=== PATIENT | female | born 1985 | race Caucasian/White ===

== ENCOUNTER 2019-02-03 07:03 | Day surgery (SDC) | payer OTHER ==
[2019-02-03] VITALS (31 sets, daily range): BP systolic 80–117; BP diastolic 48–68; PULSE 58–88; RESP 9–25; Ht 154.9 cm; Wt 68.0 kg
[~2019-02-03] VITALS: Ht 154.9 cm; Wt 68.0 kg
[2019-02-03] MEDS ORDERED: FENTAnyl 50 MCG/ML VIAL ONE (09:50)
[2019-02-03] MEDS ORDERED: CEFAZOLIN 1 GM INJ ONE (09:50)
[2019-02-03] MEDS ORDERED: ONDANSETRON 4 MG INJ ONE (09:50)
[2019-02-03] MEDS ORDERED: MIDAZOLAM 1 MG/ML 2 ML INJ ONE (09:50)
[2019-02-03] MEDS ORDERED: PROPOFOL 20 ML ONE (09:50)
[2019-02-03] MEDS ORDERED: ROCURONIUM 50 MG INJ ONE (09:50)
[2019-02-03] MEDS ORDERED: GLYCOPYRROLATE 0.4 MG INJ ONE (09:50)
[2019-02-03] MEDS ORDERED: NEOSTIGMINE 3 MG/3 ML SYRINGE ONE (09:50)
[2019-02-03] MEDS ORDERED: DEXAMETHASONE 4 MG/ML 5 ML INJ ONE (09:51)
[2019-02-03] MEDS ORDERED: CEFAZOLIN 2 GM/50 ML (PMX) 50 ML IVPB SCH (10:00)
[2019-02-03] MEDS ORDERED: SOD CHLORIDE 0.9% 1,000 ML IV SCH (10:00)
--- NOTE | 2019-02-03 10:23 | PREAC ---
Date/Time of Note Date/Time of Note DATE: 02/03/19 TIME: 10:22 Anesthesia Eval and Record Evaluation Time Pre-Procedure Interview DATE: 02/03/19 TIME: 10:22 Age 33 Sex female NPO: 8 hrs Preoperative diagnosis RIGHT DORSAL WRIST GANGLION CYST Planned procedure EXCISION RIGHT DORSAL WRIST GANGLION CYST Past Medical History Past Medical History: None Surgery & Anesthesia Issues No known issue Meds Anticoagulation: No Beta Abigail within 24 hr: No Reason Beta Abigail not given: Pt. not on B-Abigail No Active Prescriptions or Reported Meds Current Medications Sodium Chloride 1,000 ml @ 75 mls/hr [id number] IV ; Start 02/03/19 at 10:00; Stop 02/03/19 at 18:00 Cefazolin Sodium/ Dextrose 50 ml @ 100 mls/hr PRE-OP IVPB ; Start 02/03/19 at 10:00 Meds reviewed: Yes Allergies Coded Allergies: No Known Drug Allergy (Verified Allergy, Unknown, 02/03/19) Allergies Reviewed: Yes Labs/Studies Labs Reviewed: Reviewed by anesthesiologist Result Diagram: 02/03/19 0815 02/03/19 0815 Laboratory Tests 02/03/19 08:15 test: Negative Pre-procedure Exam Last vitals Vital Signs Date Temp Pulse Resp B/P (MAP) Pulse Ox O2 O2 Flow FiO2 Time Delivery Rate 02/03/19 97.6 64 16 117/63 100 Room Air 08:24 (81) Airway: Adequate mouth opening, Adequate thyromental dist Mallampati: Mallampati II Teeth: Normal Lung: Normal Heart: Normal ASA Physical Status ASA physical status: 1 Emergency: None Planned Anesthetic General/MAC: LMA, MAC Pre-operative Attestations Prior to commencing anesthesia and surgery, the patient was re-evaluated, there was verification of: *The patient's identity *The results of appropriate recent lab work and preoperative vital signs *The above evaluation not changing prior to induction *Anesthetic plan, risk benefits, alternative and complications discussed with patient/family; questions answered; patient/family understands, accepts and wishes to proceed. Yunior Herrera M.D. Feb 03, 2019 10:23
[2019-02-03] MEDS ORDERED: hydrALAzine 20 MG INJ IV PRN (10:30)
[2019-02-03] MEDS ORDERED: OXYCODONE/ACETAMINOPHEN (5/325) TAB PO PRN ×2 (10:30)
[2019-02-03] MEDS ORDERED: FENTAnyl 50 MCG/ML VIAL IV PRN ×3 (10:30)
[2019-02-03] MEDS ORDERED: TRIMETHOBENZAMIDE 100 MG/ML VIAL IM PRN (10:30)
[2019-02-03] MEDS ORDERED: LABETALOL HCL 20MG INJ IV PRN (10:30)
[2019-02-03] MEDS ORDERED: MIDAZOLAM 1 MG/ML 2 ML INJ IV PRN (10:30)
[2019-02-03] MEDS ORDERED: DIPHENHYDRAMINE 50 MG INJ IV PRN (10:30)
[2019-02-03] MEDS ORDERED: IPRATROPIUM (NEB) 0.5 MG/2.5 ML AMP HHN PRN (10:30)
[2019-02-03] MEDS ORDERED: EPHEDrine SULFATE 50 MG/5 ML SYG IV PRN (10:30)
[2019-02-03] MEDS ORDERED: ONDANSETRON 4 MG INJ IV PRN (10:30)
[2019-02-03] MEDS ORDERED: MEPERIDINE 25 MG INJ IV PRN (10:30)
[2019-02-03] MEDS ORDERED: ALBUTEROL 0.083% (NEB) 2.5 MG/3 ML AMP HHN PRN (10:30)
[2019-02-03] MEDS ORDERED: HYDROmorphONE 1 MG/5 ML IV SYRINGE IV PRN ×3 (10:30)
[2019-02-03] MEDS ORDERED: BUPIVACAINE 0.25% (MPF) 30 ML INJ ONE (10:48)
--- NOTE | 2019-02-03 11:10 | OPR ---
Date/Time of Note Date/Time of Note DATE: 02/03/19 TIME: 11:06 Operative Report Procedure Date: Feb 03, 2019 Preoperative Diagnosis right wrist dorsal ganglion cyst Postoperative Diagnosis same Operation/Procedure Performed 1. excision of right wrist dorsal ganglion cyst 2 cm cyst 2 cm incision 2. localized adjacent tissue transfer with the use of skin flaps 4 sq cm defect of right wrist 3. therapeutic injection of subcutaneous local anesthesia Surgeon see signature line Stud Sheep Farmer none Anesthesia Type: general Estimated Blood Loss: 0 - 10 ml's Transfusion none Specimen ganglion cyst Grafts/Implants none Complications none Pt Condition Post Procedure: stable Indications This is a 33-year-old female with symptomatic right dorsal wrist ganglion cyst. She has pain and request surgical excision of the cyst. Risks alternatives benefits and percent were discussed the patient. Patient expressed understanding and consents to the operation. Procedure Description Patient states the OR and prepped and draped in usual sterile fashion. Surgical time was performed. IV antibiotics given through transverse incisions with a 15 blade. Dissection with cautery scant to the cyst. Using blunt dissection with mosquito graspers the cyst is dissected out carefully elevated at the base. This is then ruptured in a controlled fashion and the contents are then suctioned out. The cyst and cyst wall due to the base is then identified and excised. This is sent for specimen. Good hemostasis status. Due to tissue defect localized adjacent to his transfer with these of skin flaps was performed. Multilayer closure with interrupted 3-0 Vicryl running 4-0 Monocryl. Therapeutic contains local anesthesia was injected at the incision site. Dry dressings were applied. Billy MATHEW Feb 03, 2019 11:10
--- NOTE | 2019-02-03 11:17 | PAC ---
Date/Time of Note Date/Time of Note DATE: 02/03/19 TIME: 11:16 Post-Anesthesia Notes Post-Anesthesia Note Last documented vital signs Vital Signs Date Temp Pulse Resp B/P (MAP) Pulse Ox O2 O2 Flow FiO2 Time Delivery Rate 02/03/19 97.6 64 16 117/63 100 Room Air 08:24 (81) Activity: WNL Respiratory function: WNL Cardiovascular function: WNL Mental status: Baseline Pain reasonably controlled: Yes Hydration appropriate: Yes Nausea/Vomiting absent: Yes Yunior Herrera M.D. Feb 03, 2019 11:17
[2019-02-03] MEDS ORDERED: HYDROCODONE/APAP (5/325) TAB PO ONE (11:30)
[2019-02-03] MEDS ORDERED: MEPERIDINE 25 MG INJ ONE (11:45)
[2019-02-03] MEDS ORDERED: HYDROmorphONE 1 MG/5 ML IV SYRINGE IV ONE (11:53)
[2019-02-03] MEDS ORDERED: HYDROCODONE/APAP (5/325) TAB ONE (11:54)
== END 2019-02-03 13:50 | disposition home or self-care (01) ==
LOC: SDS 07:03
PROVIDERS: ATTEND Surgery
DX: M67.431 Ganglion, right wrist (principal)
CPT/HCPCS: 25111; 80053; 84703; 85025; 85610; 85730; J0690; J1100; J1170; J2175; J2250; J2405; J3010; Z7512; Z7610; 88304; J2710